=== PATIENT | male | born 1995 | race African-American/Black ===

== ENCOUNTER → 2017-05-24 | Outpatient (REF) ==
[~2017-05-24] MED LIST: NO HOME MEDICATIONS; UNABLE
== END ==
LOC: WSOH 11:47
DX: Z02.1 Encounter for pre-employment examination (principal)

== ENCOUNTER 2020-10-22 21:35 | Emergency (ER) | payer SELFPAY ==
[~2020-10-22] VITALS: Ht 182.9 cm; Wt 77.3 kg
[2020-10-22 21:38] VITALS: TEMP 98.6
[2020-10-22] MEDS ORDERED: CEPHALEXIN500 M1 PO (22:20)
[2020-10-22 23:00] VITALS: BP 141/81; PULSE 99
== END 2020-10-22 23:15 | disposition home or self-care (01) ==
LOC: COL.ER 21:35
DX: S92.411B Displaced fracture of proximal phalanx of right great toe, initial encounter for open fracture (principal); F10.129 Alcohol abuse with intoxication, unspecified; W32.0XXA Accidental handgun discharge, initial encounter
CPT/HCPCS: J0690; J1170; J2405